=== PATIENT | female | born 1960 ===

== ENCOUNTER → 2022-04-23 09:49 | Outpatient (CLI) | payer OTHER, SELFPAY ==
[2022-04-23 12:15] LABS: COVID19 -Nasal RAPID Negative (Negative)
== END ==
PROVIDERS: PCP Physician Assistant Medical; Visit Provider Family Medicine Sleep Medicine
DX: Z20.822 Contact with and (suspected) exposure to COVID-19 (principal)
CPT/HCPCS: 87635; C9803

== ENCOUNTER 2022-04-24 10:26 | Day surgery (SDC) | payer OTHER, SELFPAY ==
[2022-04-16 15:10] VITALS: BMI 20.9
[2022-04-24] VITALS (7 sets, daily range): BP systolic 95–155; BP diastolic 48–80; PULSE 72–81; RESP 16–25; TEMP 36.6–37.4; O2SAT 93–100; BMI 20.9
[2022-04-24] MEDS: ACETAMINOPHEN 325 MG TABLET 975 MG PO (10:58)
[2022-04-24] MEDS: SCOPOLAMINE 1 PATCH TOP (10:59)
[2022-04-24] MEDS: GABAPENTIN 300 MG CAPSULE PO (10:59)
[2022-04-24] MEDS: LACTATED RINGERS 1,000 ML 100 ML IV (11:09)
--- NOTE | 2022-04-24 14:03 | SUR.PREOP ---
04/24/[id number] delayed due to physician still in OR working. patient updated and reassured. 04/24/[id number]-[id number], Jonny, Called and updated on delay going in to OR. Patient now seen by physician/anesthesia and [facility] . to go to OR soon. reassured-and re informed MD will call when surgery completed.
--- NOTE | 2022-04-24 14:05 | PM.PREOP ---
Pre-operative Note COVID-19 COVID-19 status: Negative Result date/Date tested (Pos, Neg/Pending): 04/23/22 Interval Note History & Physical reviewed/Exam performed by Physician: Yes Changes to H&P: No
--- NOTE | 2022-04-24 14:06 | P.OP_ITS ---
Operative Date/Time/Diagnoses Date of procedure: 04/24/22 Time of procedure: 14:06 Pre-op diagnosis: Right hallux abductovalgus with bunion and arthritis great toe Post-op diagnosis: same Procedure & Clinicians Procedure: Right first metatarsophalangeal joint arthrodesis Same procedure as scheduled: Yes Indications: 62-year-old female with painful bunion and arthritis to the great toe. Conservative measures failed to alleviate her pain and she wished to have surgical intervention at this time. We spoke of the risks, potential complicat ions, alternatives, and expected outcomes. Consent was signed and reviewed, no contraindications to the procedure at this time. Surgeon: Pauline Ji Click Yes if Unassisted: Yes Anesthesia Type: General Operative Notes Closure Type: primary Specimen(s): none sent Applied: implant(s) (Brandon 1st MTP plate, 4.0 cannulated screw, 3.5 locking and non-locking screws (x6)) Estimated Blood Loss (mL): 30 Blood products transfused: none Tourniquet time (min): 83 Procedure in detail: The patient was brought to the operating room and placed on the operating table in the supine position. A tourniquet was placed about the patient's right thigh. She was well-padded and appropriately aligned and secured. After induction of general anesthesia the foot was prepared and local anesthesia was delivered to the foot in the 1st ray area as per fiberglass fabricator records. The foot and ankle were prepped and draped in the usual aseptic manner. The tourniquet was inflated to the thigh. Incision was made over the dorsal aspect of the right 1st metatarsophalangeal joint. The incision was deepened through subcutaneous tissues being careful to identify and retract all vital neurovascular structures. All bleeders were cauterized and ligated necessary. Mild amount of degenerative changes were noted to the dorsomedial 1st metatarsophalangeal joint, and prominent enlarged first metatarsal head medial eminence. The capsule was opened and I noted an enlarged amount of thickened synovitic capsule dorsomedial, reactive from pressure of the dorsally based first metatarsal head, and prominent medial bunion of the 1st metatarsal head. A guidewire was placed in the 1st metatarsal head and a reamer was used to resect the cartilage from the 1st metatarsal head and prepare the joint. The same procedure was performed to the proximal phalanx base. These guidewires were then removed. Subchondral drilling was performed to either side with the guidewire as well as some fish scaling using a small osteotome. The area was irrigated with copious amount of normal sterile saline. A saw was used to resect the medial eminence enlargement as well as some of the more prominent areas the dorsal 1st metatarsal head. Temporary fixation across the joint was placed with a guidewire and this was checked under C-arm to be in appropriate alignment. A plate was chosen and any further reduction of prominences dorsally was performed with a rasp and rongeur. Using the aid of fluoroscopy, the guide wire was used as cannulation for the drill for a lag screw from the distal medial to proximal lateral 1st metatarsal phalangeal joint. Confirmed appropriate in all 3 planes, a partially threaded screw was placed and the guidewire removed. Good strength and reduction of the former joint. Plate was placed and with the aid of fluoroscopy a series of locking screws and a nonlocking screw were placed across the plate and secured the joint well. This was checked on C-arm. The area is irrigated with copious amounts normal sterile saline. The tourniquet was deflated and prompt hyperemic response was seen to the foot. No motion was noted at the 1st MTPJ. A good amount of the thickened capsule medially and dorsally was thinned down using sharp debridement but still some was needed for coverage. Deept and subcutaneous closure was performed using Vicryl and nylon was used to close the skin. A sterile lightly compressive dressing was placed on the foot and she was placed in the postoperative boot. Patient was transferred to the PACU with vital signs stable and vascular status intact. Post-operative Condition: stable Disposition: PACU Plan for aftercare: Following a period of postoperative monitoring, the patient will be discharged to home on written and oral postoperative instructions including keeping the dressing dry and intact, non-weightbearing to the surgical foot, icing and elevating the foot when seated home. DVT prevention techniques have been reviewed. For the 1st postoperative visit the dressing will be changed and close to the 4th postoperative week we will likely take x-ray of foot.
[2022-04-24] MEDS: BUPIVACAINE 0.5% (PF) VIAL 30 ML INJ (14:28)
--- NOTE | 2022-04-24 14:59 | SUR.OPER ---
Supine on padded OR bed, head on pillow, arms secured on padded arm boards at <90 degrees abduction, legs uncrossed, safety belt at abdomen, tape over blanket over lower left leg.
[2022-04-24] MEDS: CEFAZOLIN 2 GM/20 ML SYRINGE IV (15:14)
--- NOTE | 2022-04-24 16:49 | PM.OP.1 ---
Operative Date/Time/Diagnoses Date of procedure: 04/24/22 Time of procedure: 16:50
[2022-04-24] MEDS: LACTATED RINGERS 1,000 ML 42 ML IV (16:52)
[2022-04-24] MEDS: ONDANSETRON 4 MG/2 ML INJ IV (17:10)
[2022-04-24] MEDS: OXYCODONE IR 5 MG TABLET PO (17:10)
== END 2022-04-24 17:50 | disposition home or self-care (01) ==
PROVIDERS: PCP Physician Assistant Medical; Referring Provider Podiatrist; Visit Provider Podiatrist
PROC: (CPT 28750; principal; 2022-04-24 12:00)
DX: M20.11 Hallux valgus (acquired), right foot (principal); M19.071 Primary osteoarthritis, right ankle and foot; M20.41 Other hammer toe(s) (acquired), right foot
CPT/HCPCS: 28750; 82962; C1734; J0690; J1100; J1885; J2250; J2405; J2704; J3010

== ENCOUNTER 2023-09-11 08:48 | Day surgery (SDC) | payer OTHER, SELFPAY ==
[2023-09-11] MEDS: LACTATED RINGERS 1,000 ML 84 ML IV (09:07)
[2023-09-11 09:18] VITALS: BP 161/81; PULSE 74; RESP 16; TEMP 36.6; O2SAT 100; BMI 20.9
--- NOTE | 2023-09-11 10:49 | PM.HP.1 ---
History of Present Illness History of Present Illness Date Patient Seen: 09/11/23 Time Patient Seen: 10:49 Chief complaint: SDC Narrative: Last colonoscopy was 10 years ago. no family history or concerning symptoms. [facility] Medical History Primary osteoarthritis Hallux valgus Social History household members: spouse Smoking Status: Never smoker alcohol intake: never Meds Home Medications and Allergies Home Medications Medication Instructions Recorded Confirmed Type Vitamin D (with calcium) 125 mcg PO DAILY 09/11/23 09/11/23 History tumeric 100 mg-ewa 150 mg-olive 150 cap PO DAILY 09/11/23 09/11/23 History 50 mg-oreg 150 mg-caprylate capsule Allergies Allergy/AdvReac Type Severity Reaction Status Date / Time No Known Allergies Allergy Uncoded 09/11/23 09:06 Review of Systems Review of Systems ROS: Yes All systems reviewed with the patient and are negative except as otherwise documented Exam Vital Signs (past 8 hours): - 09/11/23 09:18 Temperature 97.9 F Pulse Rate 74 Respiratory Rate 16 Blood Pressure 161/81 H Pulse Oximetry 100 Oxygen Delivery Method Room Air Oxygen Delivery Method Room Air Const General: cooperative and healthy appearing [facility] Head: normocephalic and atraumatic Eyes Eyelids: eyelids normal Sclera: sclerae normal Neck Neck: trachea midline Resp Effort & Inspection: normal respiratory effort and able to speak in complete sentences Cardio Rate: regular rate Rhythm: regular rhythm GI Palpation: soft Skin General: turgor normal Neuro General: patient alert, patient awake and patient oriented x3 Speech: speech normal Psych Appearance: grossly normal Judgment: judgment good Assessment & Plan Assessment & Plan narrative: Screening for colon cancer using colonoscopy and anesthesia Time Spent With Patient Time with patient: less than 30 minutes
--- NOTE | 2023-09-11 11:29 | PM.OP.COLON ---
Operative Date/Time/Diagnoses Date of procedure: 09/11/23 Time of procedure: 11:29 Pre-op diagnosis: Colon cancer screening Post-op diagnosis: same Procedure & Clinicians Study performed: Colonoscopy with anesthesia Same procedure as scheduled: Yes Indications: Colon cancer screening Surgeon: Abby Hernandez Procedure Notes Procedure in detail: Preop diagnosis: Colon cancer screening Postop diagnosis: Same Operative procedure: Colonoscopy with anesthesia Surgeon: Alla Hernandez MD Findings: No polyps or diverticulosis identified Procedure: Patient placed in a lateral position. Rectal exam performed showing normal tone no masses. Colonoscope inserted into the rectum and advanced to ileocecal valve with use of external pressure. Insufflation extraction of the scope including retroflex in the rectum had the above findings. Impression: No polyps, no diverticulosis. Plan: Repeat colonoscopy in 10 years unless otherwise indicated by change in clinical condition Specimen(s): none sent Complications: none Post-procedure Recommendations: Colonoscopy in 10 years Follow up: as needed Disposition: PACU
[2023-09-11 11:30] VITALS: BP 97/66; PULSE 67; RESP 20; TEMP 36.3; O2SAT 96
[2023-09-11 11:35] VITALS: BP 100/66; PULSE 63; RESP 17; O2SAT 99
[2023-09-11 11:40] VITALS: BP 100/67; PULSE 61; RESP 17; O2SAT 100
[2023-09-11 11:55] VITALS: BP 123/81; PULSE 67; RESP 17; TEMP 36.3; O2SAT 100
== END 2023-09-11 12:00 | disposition home or self-care (01) ==
PROVIDERS: PCP Physician Assistant Medical; Referring Provider Surgery; Visit Provider Surgery
PROC: 0DJD8ZZ Inspection of Lower Intestinal Tract, Via Natural or Artificial Opening Endoscopic (ICD-10-PCS; CPT 45378; principal; 2023-09-11 09:45)
DX: Z12.11 Encounter for screening for malignant neoplasm of colon (principal)
CPT/HCPCS: 45378; J2704